=== PATIENT | male | born 1950 | race Caucasian/White ===

== ENCOUNTER 2017-12-29 13:21 | Inpatient (IN) | payer MEDICAID ==
[2017-12-29] MEDS ORDERED: ONDANSETRON HCL IV 4 MG/2 ML VIAL IV ONE (13:38)
[2017-12-29] MEDS ORDERED: 0.9 % SODIUM CHLORIDE 1000ML 1,000 ML IV PRN ×2 (13:38→17:31)
[2017-12-29] MEDS ORDERED: SODIUM CHLORIDE 0.9% 500 ML IV ONE (13:38)
--- NOTE | 2017-12-29 13:38 | Emergency Department Record ---
History of Present Illness - General Chief Complaint: Abdominal Pain Stated Complaint: VOMITING,ABDOMINAL PAIN Time Seen by Provider: 12/29/17 13:31 Source: Patient, Family () Mode of Arrival: Ambulatory - History of Present Illness Initial Comments: Pt with one day of epigastric pain and vomiting. Onset after dinner last night. Hx of similar over the years. Never diagnosed cause. Pt have vomited thru the day and is unable to eat. No diarrhea, no fever. No hx of abdominal surgery or obstruction. No BM yet today but "normally in the afternoon". No CP or SILVANA. + smoker 3 cigars a day, rare social alcohol, not recently. MD Complaint: Abdominal pain Onset/Timin -: Days(s) Location: Periumbilical Severity scale (1-10): 7 Quality: Dull Consistency: Constant Improves With: Nothing Worsens With: Nothing Associated Symptoms: Vomiting - Related Data Home Medications Medication Instructions Recorded Confirmed Last Taken Acetaminophen [Tylenol Extra 1,000 mg PO DAILY 12/29/17 12/29/17 12/29/17 Strength] Previous Rx's Medication Instructions Recorded Amlodipine Besylate [Norvasc] 10 mg PO DAILY #14 tab 01/01/18 Ciprofloxacin HCl [Cipro] 500 mg PO Q12HR #10 tablet 01/01/18 Metronidazole [Flagyl] 500 mg PO Q8HR #15 tablet 01/01/18 Allergies Allergy/AdvReac Type Severity Reaction Status Date / Time No Known Drug Allergies Allergy Verified 12/29/17 13:32 Travel Screening - Travel/Exposure Within Last 30 Days Have you traveled within the last 30 days?: No - Travel/Exposure Within Last Year Have you traveled outside the [place] in the last year?: No - Additonal Travel Details Have you been exposed to anyone with a communicable illness?: No - Travel Symptoms Symptom Screening: None Review of Systems Constitutional: Denies: Chills, Fever, Malaise, Weight change Eyes: Denies: Eye discharge ENT: Denies: Congestion, Epistaxis Respiratory: Denies: Cough, Dyspnea Cardiovascular: Denies: Arrhythmia, Chest pain Endocrine: Denies: Fatigue, Polydipsia, Polyuria Gastrointestinal: Reports: As per HPI, Abdominal pain, Vomiting. Denies: Diarrhea Genitourinary: Denies: Discharge, Dysuria Musculoskeletal: Denies: Arthralgia, Back pain Skin: Denies: Bruising, Change in color Neurological: Denies: Abnormal gait, Headache, Numbness Psychiatric: Denies: Anxiety Hematological/Lymphatic: Denies: Anemia Past Medical History - SOCIAL HISTORY Smoking Status: Current every day smoker Alcohol Use: Occasional Drug Use: Heavy Drug Use Detail:: Marijuana - RESPIRATORY Hx Respiratory Disorders: No - CARDIOVASCULAR Hx Cardio Disorders: Yes Hx Hypertension: Yes Comment:: High cholestrol - NEURO Hx Neuro Disorders: No - GI Hx GI Disorders: No - Hx Genitourinary Disorders: No - ENDOCRINE Hx Endocrine Disorders: No - MUSCULOSKELETAL Hx Musculoskeletal Disorders: No - PSYCH Hx Psych Problems: No - HEMATOLOGY/ONCOLOGY Hx Hematology/Oncology Disorders: No Family Medical History Any Significant Family History?: No Hx Cancer: Mother, Brother/Sister Hx HTN: Mother, Brother/Sister Physical Exam - General General Appearance: Alert, Oriented x3, Cooperative, Mild distress - Head Head exam: Atraumatic - Eye Eye exam: Normal appearance, PERRL, EOMI - ENT ENT exam: Normal exam, Mucous membranes moist, Normal external ear exam, Normal orophraynx, TM's normal bilaterally - Neck Neck exam: Normal inspection, Full ROM. negative: Tenderness - Respiratory Respiratory exam: Normal lung sounds bilaterally. negative: Respiratory distress, Wheezes - Cardiovascular Cardiovascular Exam: Regular rate, Normal rhythm. negative: Tachycardia Peripheral Pulses: 2+: Radial (R), Radial (L) - GI/Abdominal GI/Abdominal exam: Distended, Hypoactive bowel sounds, Tenderness. negative: Guarding, Rebound - Extremities Extremities exam: Normal inspection. negative: Normal capillary refill - Back Back exam: Reports: Normal inspection. Denies: Paraspinal tenderness, Vertebral tenderness - Neurological Neurological exam: Alert, Normal gait, Oriented X3 - Psychiatric Psychiatric exam: Normal affect - Skin Skin exam: Normal color. negative: Rash Course Vital Signs 12/29/17 13:23 Temperature 97.9 F Pulse Rate 125 H Respiratory 20 Rate Blood Pressure 209/107 Pulse Ox 99 - Reevaluation(s) Reevaluation #1: 12/29/17 17:35 CT with mechanical obstruction. Admit to Dr. Forrester and consult surgery with Dr. Sousa. Discussed with both by phone. NPO with IV fluids tonight. No NGT. Xray and lab in AM. Pt and aware and agree. Medical Decision Making - Management Options MDM Management: No Additional Work-up Planned - Data Complexity MDM Data: Labs Ordered and/or Reviewed, X-Ray Ordered and/or Reviewed, EKG Ordered and/or Reviewed - Lab Data Result diagrams: 01/01/18 06:21 01/01/18 06:21 - Radiology Data Radiology results: Report reviewed, Image reviewed Disposition Disposition: Admit Clinical Impression: Small bowel obstruction, Leukocytosis, Vomiting Disposition: Still a Patient at [facility] Decision to Admit: Admit from ER Decision to Admit Date: 12/29/17 Decision to Admit Time: 17:31 Accepting Physician: Mitzy Parsons Discussed w/Accepting Physician: 17:31 Condition: (3) Guarded Time of Disposition: 18:07 Quality - Quality Measures Quality Measures: N/A - Blood Pressure Screening Does Patient Have Any of the Following: Active Dx of HTN Blood Pressure Classification: Hypertensive Reading Systolic Measurement: 163 Diastolic Measurement: 100 Screening for High Blood Pressure: Patient Exclusion, Hx of HTN [[id number]]
[2017-12-29 13:57] LABS: HEMATOCRIT 48.4 % (42.0-52.0); HEMOGLOBIN 16.2 gm/dl (14.0-18.0); MEAN CELL VOLUME 100.6 fl (81-97); MEAN CORPUSCULAR HEMOGLOBIN 33.7 pg (27-33); MEAN CORPUSCULAR HGB CONC 33.5 g/dl (32-36); MEAN PLATELET VOLUME 9.8 fl (7.4-10.4); PLATELET COUNT 385 K/uL (130-400); RED BLOOD COUNT 4.81 M/uL (4.40-5.70); RED CELL DISTRIBUTION WIDTH 13.6 % (11.5-14.5)
[2017-12-29 14:03] LABS: BLOOD UREA NITROGEN 7 mg/dL (8-23); CREATININE 0.8 mg/dL (0.7-1.2); EST GLOMERULAR FILTRATION RATE > 60 mL/min
[2017-12-29 14:04] LABS: TOTAL PROTEIN 8.1 g/dL (6.6-8.7)
[2017-12-29 14:06] LABS: GLUCOSE,RANDOM 141 mg/dL (74-109)
[2017-12-29 14:07] LABS: PLATELET ESTIMATE NORMAL (NORMAL)
[2017-12-29 14:09] LABS: ALBUMIN 4.1 g/dL (4.0-5.0); ALKALINE PHOSPHATASE 143 U/L (40-129); ALT/SGPT 7 U/L (<41); AST/SGOT 14 U/L (10.0-50.0)
[2017-12-29] MEDS ORDERED: HYDROMORPHONE HCL 2 MG/ML VIAL IVP ONE (14:52)
[2017-12-29 16:30] LABS: URINE APPEARANCE CLEAR; URINE BILIRUBIN NEGATIVE (NEGATIVE); URINE BLOOD SMALL (NEGATIVE); URINE COLOR YELLOW; URINE GLUCOSE (UA) NEGATIVE (NEGATIVE); URINE KETONE 40 mg/dL (NEGATIVE); URINE LEUKOCYTE ESTERASE NEGATIVE (NEGATIVE); URINE NITRITE NEGATIVE (NEGATIVE); URINE PROTEIN NEGATIVE (NEGATIVE); URINE UROBILINOGEN 0.2 E.U./dL (0.20 - 1.00)
[2017-12-29 16:44] LABS: URINE EPITHELIAL CELLS NONE SEEN (FEW); URINE WBC NONE SEEN (0-2/hpf)
[2017-12-29] MEDS ORDERED: POTASSIUM CHLORIDE/D5-0.9%NACL 20 MEQ/1,000 ML BAG IV ONE (17:31)
[2017-12-29] MEDS: POTASSIUM CHLORIDE/D5-0.45NACL 20 MEQ/1,000 ML BAG IV SCH (18:44)
[2017-12-29] MEDS ORDERED: PNEUM 13-VAL/PF 0.5 ML IM ONE (18:53)
[2017-12-29] MEDS: ONDANSETRON HCL IV 4 MG/2 ML VIAL IVP PRN (23:13)
[2017-12-29] MEDS: MORPHINE SULFATE 10 MG/ML VIAL IVP PRN (23:13)
[2017-12-30] MEDS: POTASSIUM CHLORIDE/D5-0.45NACL 20 MEQ/1,000 ML BAG IV SCH (03:15)
[2017-12-30] MEDS: MORPHINE SULFATE 10 MG/ML VIAL IVP PRN ×3 (04:33→19:38)
[2017-12-30 06:53] LABS: BASO % 0.1 % (0-6); HEMATOCRIT 47.9 % (42.0-52.0); LYMPH % 6.4 % (16-45); MEAN CELL VOLUME 100.6 fl (81-97); MEAN CORPUSCULAR HEMOGLOBIN 33.6 pg (27-33); MEAN CORPUSCULAR HGB CONC 33.4 g/dl (32-36); MEAN PLATELET VOLUME 9.9 fl (7.4-10.4); MONO % 7.6 % (0-9); PLATELET COUNT 368 K/uL (130-400); RED BLOOD COUNT 4.76 M/uL (4.40-5.70); RED CELL DISTRIBUTION WIDTH 13.7 % (11.5-14.5)
[2017-12-30 07:03] LABS: BLOOD UREA NITROGEN 5 mg/dL (8-23); CREATININE 0.8 mg/dL (0.7-1.2); EST GLOMERULAR FILTRATION RATE > 60 mL/min; GLUCOSE,RANDOM 149 mg/dL (74-109)
[2017-12-30 07:05] LABS: WHITE BLOOD COUNT W/O DIFF 26.9 K/uL (4.2-12.2)
--- NOTE | 2017-12-30 08:05 | RADIOLOGY REPORT ---
EXAM: ACUTE ABDOMEN SERIES HISTORY: ABDOMINAL PAIN. TECHNIQUE: A single view of the chest and supine and upright views of the abdomen were performed. FINDINGS: The heart size is normal. The lung ruiz are clear. No infiltrate or pleural effusion. No pneumothorax. Nonobstructive air filled loops of small bowel. No evidence of free air. No radiopaque densities. Osteopenia. IMPRESSION: 1. NONOBSTRUCTIVE BOWEL GAS PATTERN. NO EVIDENCE OF FREE AIR. 2. NO ACUTE INTRATHORACIC DISEASE PROCESS. [facility] [id number] [facility]
--- NOTE | 2017-12-30 08:14 | CT SCAN REPORT ---
EXAM: CT OF THE ABDOMEN AND PELVIS WITH IV CONTRAST HISTORY: ABDOMINAL PAIN, DISTENTION, VOMITING FOR ONE DAY. TECHNIQUE: Helical CT scan of the abdomen and pelvis was obtained after the administration of intravenous contrast, the type and amount of contrast is specified in the patient's medical record. The patient also received oral contrast. Comparison: CT of the abdomen and pelvis 03/18/14. FINDINGS: The right lower lobe pulmonary nodule is calcified. No noncalcified pulmonary nodules. Minimal right basilar atelectasis. No pleural or pericardial effusion. The stomach is moderate distended, similar to previous exam. There is mild thickening of the second portion of the duodenum. The jejunum is mildly distended. The ileum is not dilated. There is slight angulation of the distal jejunum/proximal ileum with decompressed bowel following, see image 109. The colon is mildly distended with gas. The liver is unremarkable. The spleen is small. The pancreas and adrenal glands are within normal limits. Cortical cysts are again seen in both kidneys , similar to previous exam. No hydronephrosis. No adenopathy or ascites. Moderate atherosclerotic change of the nonaneurysmal abdominal aorta. The mesenteric arteries are widely patent. The mesenteric veins are patent. The gallbladder is mildly distended, no abnormal wall thickening. The bile ducts have normal caliber. The bony structures show moderate degenerative changes of the lower lumbar spine. IMPRESSION: MODERATELY DISTENDED STOMACH AND PROXIMAL SMALL BOWEL. THERE MAY BE SLIGHT THICKENING OF THE SECOND PORTION OF THE DUODENUM. THERE IS ALSO A SLIGHT TRANSITION IN THE DISTAL JEJUNUM/PROXIMAL ILEUM, WHICH MAY REPRESENT A LOW GRADE PARTIAL MECHANICAL BOWEL OBSTRUCTION. JOB NUMBER: [id number] [facility]
--- NOTE | 2017-12-30 08:33 | History & Physical ---
History of Present Illness - Date of Service Date of Service for History & Physical: 12/30/17 - History of Present Illness Admitting Diagnosis: bowel obstruction History of Present Illness: Mr. 67 y/o male with complaint of abdominal pain which began yesterday morning while at home. He describes acute onset pain in the mid abdomen with a severity of about 10/10. He says that he also had some nausea sand vomiting episodes with his symptoms but denies constipation or diarrhea. The patient says that his last bowel movement was 1 day ago and he did not notice any change in stool calibre and there was no blood. He reports having a colonoscopy several years ago in [place] with no positive findings. The patient denies weight loss, appetite changes, fever or chills. He admits to alcohol use every few days and says his last drink was 3 days ago. On admission to [facility] ED the patient was noted to have significant elevation in white blood count and CT of the abdomen was suggestive of partial mechanical obstruction in the distal jejunum/ileum. The patient is admitted for bowel rest , pain management and Genral surgery consult for evaluation. Vitals on admission: BP: 209/107 HR: 125 RR: 20 T: 97.9 Sats: 99% RA Abdominal XR: nonobstructive bowel gas pattern, no free air. CT abdomen w/ contrast: partial SBO in the jejunem/iluem with partial thickening of the duodenum. PCP: No PCP at this time. Travel Screening - Travel/Exposure Within Last 30 Days Have you traveled within the last 30 days?: No - Travel/Exposure Within Last Year Have you traveled outside the [place] in the last year?: No - Additonal Travel Details Have you been exposed to anyone with a communicable illness?: No - Travel Symptoms Symptom Screening: Stomach Pain Review of Systems Constitutional: Denies: Chills, Fever, Malaise, Weight change Eyes: Denies: Eye discharge ENT: Denies: Congestion, Epistaxis Respiratory: Denies: Cough, Dyspnea Cardiovascular: Denies: Arrhythmia, Chest pain Endocrine: Denies: Fatigue, Polydipsia, Polyuria Gastrointestinal: Reports: As per HPI, Abdominal pain, Vomiting. Denies: Diarrhea Genitourinary: Denies: Discharge, Dysuria Musculoskeletal: Denies: Arthralgia, Back pain Skin: Denies: Bruising, Change in color Neurological: Denies: Abnormal gait, Headache, Numbness Psychiatric: Denies: Anxiety Hematological/Lymphatic: Denies: Anemia Past Medical History - SOCIAL HISTORY Smoking Status: Current every day smoker Alcohol Use: Occasional Drug Use Detail:: Marijuana - RESPIRATORY Hx Respiratory Disorders: No - CARDIOVASCULAR Hx Cardio Disorders: Yes Hx Hypertension: Yes (pt. states currently not taking any medications) Comment:: High cholestrol - NEURO Hx Neuro Disorders: No - GI Hx GI Disorders: No - Hx Genitourinary Disorders: No - ENDOCRINE Hx Endocrine Disorders: No - MUSCULOSKELETAL Hx Musculoskeletal Disorders: No - PSYCH Hx Psych Problems: No - HEMATOLOGY/ONCOLOGY Hx Hematology/Oncology Disorders: No Family Medical History Any Significant Family History?: Yes Hx Cancer: Mother, Brother/Sister Hx HTN: Mother, Brother/Sister H&P Meds/Allergies - Allergies Allergies: Allergies Allergy/AdvReac Type Severity Reaction Status Date / Time No Known Drug Allergies Allergy Verified 12/29/17 13:32 - Home Medications Home Medications Medication Instructions Recorded Confirmed Last Taken Acetaminophen [Tylenol Extra 1,000 mg PO DAILY 12/29/17 12/29/17 12/29/17 Strength] - Active Medications Active Medications: Current Medications Sodium Chloride () 1,000 mls @ 125 mls/hr IV .Q8H PRN PRN Reason: LARGE VOLUME IV Sodium Chloride () 1,000 mls @ 125 mls/hr IV .Q8H PRN PRN Reason: LARGE VOLUME IV Potassium Chloride/Dextrose/Sod Cl (Dext 5% Nacl 0.45% Kcl 20 Meq) 20 meq in 1, 000 mls @ 125 mls/hr IV Q8H LILIA Last Admin: 12/30/17 03:15 Dose: 125 mls/hr Morphine Sulfate (Morphine Sulfate) 2 mg IVP Q6HR PRN PRN Reason: ABDOMINAL PAIN Last Admin: 12/30/17 04:33 Dose: 2 mg Ondansetron HCl (Zofran) 4 mg IVP Q4H PRN PRN Reason: NAUSEA Last Admin: 12/29/17 23:13 Dose: 4 mg Physical Exam - Vital Signs Vital Signs: Vital Signs - Last 24 Hrs Temp Pulse Pulse Resp BP BP Pulse Ox 12/29/17 21:00 16 12/29/17 20:00 97.5 F L 79 20 177/92 95 12/29/17 19:00 98.1 F 18 163/100 96 12/29/17 18:32 98.1 F 81 18 137/104 97 12/29/17 18:26 76 18 163/100 96 12/29/17 16:57 98.6 F 80 20 186/98 97 12/29/17 15:03 98.0 F 78 20 210/100 98 12/29/17 13:23 97.9 F 125 H 20 209/107 99 - General General Appearance: Alert, Oriented x3, Cooperative, Mild distress - Head Head exam: Atraumatic - Eye Eye exam: Normal appearance, PERRL, EOMI - ENT ENT exam: Normal exam, Mucous membranes moist, Normal external ear exam, Normal orophraynx, TM's normal bilaterally - Neck Neck exam: Normal inspection, Full ROM. negative: Tenderness - Respiratory Respiratory exam: Normal lung sounds bilaterally. negative: Respiratory distress, Wheezes - Cardiovascular Cardiovascular Exam: Regular rate, Normal rhythm. negative: Tachycardia Peripheral Pulses: 2+: Radial (R), Radial (L), Dorsalis Pedis (R), Dorsalis Pedis (L) - GI/Abdominal GI/Abdominal exam: Diminished bowel sounds, Distended, Hypoactive bowel sounds, Tenderness. negative: Guarding, Rebound - Extremities Extremities exam: Normal inspection. negative: Normal capillary refill - Back Back exam: Reports: Normal inspection. Denies: Paraspinal tenderness, Vertebral tenderness - Neurological Neurological exam: Alert, Normal gait, Oriented X3 - Psychiatric Psychiatric exam: Normal affect - Skin Skin exam: Normal color. negative: Rash Results - Labs Result Diagrams: 12/30/17 06:13 12/30/17 06:13 Labs Last 24 Hours: Laboratory Results - last 24 hr 12/29/17 12/29/17 12/29/17 13:45 13:45 16:20 WBC 22.0 H* RBC 4.81 Hgb 16.2 Hct 48.4 MCV 100.6 H MCH 33.7 H MCHC 33.5 RDW 13.6 Plt Count 385 MPV 9.8 Neutrophils % 85.0 H Lymphocytes % Monocytes % Eosinophils % Not Reportable Basophils % Not Reportable Lymphocytes 10.0 L Monocytes 5.0 Platelet Estimate Normal RBC Morphology Normal Sodium 138 Potassium 4.2 Chloride 96 L Carbon Dioxide 24.0 Anion Gap 18.0 H BUN 7 L Creatinine 0.8 Estimated GFR > 60 Random Glucose 141 H Calcium 10.0 Total Bilirubin 0.50 AST 14 ALT 7 Alkaline Phosphatase 143 H Total Protein 8.1 Albumin 4.1 Globulin 4.0 Albumin/Globulin Ratio 1.0 L Urine Color Yellow Urine Appearance Clear Urine pH 5.5 Ur Specific [place] >= 1.030 Urine Protein Negative Urine Glucose (UA) Negative Urine Ketones 40 mg/dl H Urine Blood Small H Urine Nitrite Negative Urine Bilirubin Negative Urine Urobilinogen 0.2 Ur Leukocyte Esterase Negative Urine RBC 3 - 6 Urine WBC None seen Ur Epithelial Cells None seen 12/30/17 12/30/17 06:13 06:13 WBC 26.9 H* RBC 4.76 Hgb 16.0 Hct 47.9 MCV 100.6 H MCH 33.6 H MCHC 33.4 RDW 13.7 Plt Count 368 MPV 9.9 Neutrophils % 84.0 H Lymphocytes % 6.4 L Monocytes % 7.6 Eosinophils % 0.0 Basophils % 0.1 Lymphocytes 10.0 L Monocytes 6.0 Platelet Estimate RBC Morphology Sodium 133 L Potassium 3.8 Chloride 92 L Carbon Dioxide 27.0 Anion Gap 14.0 BUN 5 L Creatinine 0.8 Estimated GFR > 60 Random Glucose 149 H Calcium 9.1 Total Bilirubin AST ALT Alkaline Phosphatase Total Protein Albumin Globulin Albumin/Globulin Ratio Urine Color Urine Appearance Urine pH Ur Specific [place] Urine Protein Urine Glucose (UA) Urine Ketones Urine Blood Urine Nitrite Urine Bilirubin Urine Urobilinogen Ur Leukocyte Esterase Urine RBC Urine WBC Ur Epithelial Cells VTE H&P Assessment - Risk for VTE Risk for VTE: Yes Risk Level: Moderate Risk Assessment Date: 12/30/17 Risk Assessment Time: 09:44 VTE Orders Placed or Will Be Placed: Yes Plan - Inpatient Certification Inpatient Certification: Admit to inpatient care: Based on my medical assessment, after consideration of patient's risk factors (age, co-morbidities and patient presenting symptoms and acuity), I expect that this patient will remain in the hospital greater than or equal to two midnights and that the services needed warrant inpatient care because: Patient Risk Factors: SBO/HTN Estimated length of stay: 3 days. The patient may reasonably be expected to be discharged or transferred to a hospital within 96 hours after admission to [facility]. Services needed: General Surgery Post hospital care (if known): I certify that my determination is in accordance with my understanding of Medicare requirements for reasonable and necessary inpatient services. 12/30/17 08:45 - Detailed Diagnosis and Plan (1) Small bowel obstruction Current Visit: Yes Status: Acute Base Code: K56.609 - UNSP INTESTNL OBST, UNSP TO PARTIAL VERSUS COMPLETE OBST Comment: - CT reports: low grade mechanical obstruction near the distal jejunum and ileum with inflammation of the duodedum. - NPO, IVF Nacl 0.9% @ 100mL/hr - Zofran 4mg IVP Q4H PRN, Morphine 2 mg IVP Q4H PRN. - General surgery consulted - pending recommendations. - Serial CBC w/ diff, CMP in the morning. Lipase and lactate ordered. - Advance diet starting with clear liquids once if no surgical intervention planned. (2) HTN (hypertension) Current Visit: Yes Status: Acute Qualifiers: Hypertension type: essential hypertension Qualified Code(s): I10 - Essential (primary) hypertension Base Code: I10 - ESSENTIAL (PRIMARY) HYPERTENSION Comment: 12/30/17: - BP poorly controlled. Patient has been non-complaint with blood pressure medications. - Hydralazine 10mg Q8H LILIA, with parameters: holding for SBP < 120. - Transtion to PO medications once patient can tolerate diet. (3) Leukocytosis Current Visit: Yes Status: Acute Base Code: D72.829 - ELEVATED WHITE BLOOD CELL COUNT, UNSPECIFIED Comment: 12/30/17: - WBCs 22K --> 26.9 - pt afebrile, likely reactive vs infection. - will trend and start abx if needed. (4) Full code status Current Visit: Yes Status: Acute Base Code: Z78.9 - OTHER SPECIFIED HEALTH STATUS Comment: 12/30/17: - Patient is full code on this admission. (5) DVT prophylaxis Current Visit: Yes Status: Acute Base Code: [id number] - Comment: 12/30/17: - Lovenox 40mg daily - Ambulation as tolerated
[2017-12-30] MEDS ORDERED: 0.9 % SODIUM CHLORIDE 1000ML 1,000 ML IV PRN ×2 (09:29)
[2017-12-30] MEDS ORDERED: HYDRALAZINE 20MG/ML VIAL IV ONE (10:00)
[2017-12-30] MEDS: ONDANSETRON HCL IV 4 MG/2 ML VIAL IVP PRN (10:30)
--- NOTE | 2017-12-30 12:22 | RADIOLOGY REPORT ---
EXAM: ABDOMEN, TWO VIEWS HISTORY: EPIGASTRIC ABDOMINAL PAIN FOR ONE DAY. TECHNIQUE: Supine and upright AP views of the abdomen were obtained. Comparison: CT of the abdomen and pelvis and abdominal radiographs from . FINDINGS: Multiple dilated air filled small bowel loops throughout the abdomen , not appreciably changed from 12/29/17 radiographic comparison. Contrast within small bowel loops in the left tootie-abdomen and upper pelvis without evidence of contrast in the colon. Scattered gas and stool within the colon most prominently seen within the cecum and ascending colon, similar to prior examination. No visible pneumoperitoneum. IMPRESSION: MULTIPLE DILATED SMALL BOWEL LOOPS WHICH DO NOT APPEAR SIGNIFICANTLY CHANGED FROM COMPARISON ON THE 12/29/17. ORAL CONTRAST MATERIAL WITHIN MID/DISTAL SMALL BOWEL LOOPS HAS NOT DEFINITELY PROGRESSED FROM PRIOR CT. NO EVIDENCE OF CONTRAST IN THE COLON. JOB NUMBER: [id number] [facility]
[2017-12-30] MEDS ORDERED: 0.9 % SODIUM CHLORIDE 1,000 ML BAG IV ONE (16:29)
--- NOTE | 2017-12-30 17:31 | Medical Records Consult ---
DATE: 12/30/2017 REASON FOR CONSULTATION: Small bowel obstruction. HISTORY OF PRESENT ILLNESS: The patient is a 67-year-old male who had about a 2-day history of abdominal pain. This was generalized in his abdomen and diffuse. He vomited a few times and came into the hospital. He was seen at [facility] ER where workup was done. This did include laboratory values and a CT scan. CT scan did show findings consistent with possibly potential thickened second portion of the duodenum with some mild dilated jejunum with decompressed ileum. He did have a mild leukocytosis at the time of 22,000. He was admitted to the hospital and given IV fluids and pain control. Since then, he states he feels much better. He is passing gas but no bowel movements. His white count today did jump up to 26,000. PAST MEDICAL HISTORY: Alcohol abuse, hypercholesterolemia, hypertension. PAST SURGICAL HISTORY: Denies. CURRENT MEDICATIONS: Antihypertensives but he admits he does not use this very often. SOCIAL HISTORY: He says he drinks about 2 beers a day although had a significant alcohol history in the past. Smokes 3 cigars per day. PHYSICAL EXAMINATION: VITAL SIGNS: Temperature 98.3, pulse 98, blood pressure 157/93. HEART: Regular. LUNGS: Decreased. ABDOMEN: Soft. Mildly distended. Did have some mild right upper quadrant tenderness. Bowel sounds are scant. Examination of the inguinal region reveals no obvious hernia. EXTREMITIES: No trace of edema. RADIOGRAPHIC DATA: I did review his abdominal films this morning which do show some dilated small bowel with no passage of contrast into the colon. IMPRESSION: Bowel obstruction versus ileus. PLAN: I would recommend continue to follow him clinically. We will trend his labs. I did add a lactic acid onto the laboratory panel. On CT, his gallbladder did appear a bit distended. However, this should not give us his clinical picture. Nonetheless, gallbladder ultrasound can be ordered. He also may benefit from upper endoscopy due to his alcohol history as well as thickened duodenum on imaging. I will follow along with you. Thank you for this referral. MEGHANN
[2017-12-30] MEDS: MAGNESIUM HYDROXIDE 30 ML UDC PO SCH ×2 (19:38→20:58)
[2017-12-31] MEDS: MAGNESIUM HYDROXIDE 30 ML UDC PO SCH ×4 (00:19→18:50)
[2017-12-31 06:52] LABS: EOS % 0.3 % (0-6); HEMATOCRIT 43.4 % (42.0-52.0); HEMOGLOBIN 14.8 gm/dl (14.0-18.0); LYMPH % 5.7 % (16-45); MEAN CELL VOLUME 99.3 fl (81-97); MEAN CORPUSCULAR HGB CONC 34.1 g/dl (32-36); MEAN PLATELET VOLUME 9.9 fl (7.4-10.4); MONO % 4.8 % (0-9); PLATELET COUNT 276 K/uL (130-400); RED BLOOD COUNT 4.37 M/uL (4.40-5.70); RED CELL DISTRIBUTION WIDTH 13.6 % (11.5-14.5)
[2017-12-31 06:53] LABS: MEAN CORPUSCULAR HEMOGLOBIN 33.8 pg (27-33)
[2017-12-31 06:56] LABS: WHITE BLOOD COUNT W/O DIFF 23.4 K/uL (4.2-12.2)
[2017-12-31 07:05] LABS: BLOOD UREA NITROGEN 8 mg/dL (8-23); CREATININE 0.7 mg/dL (0.7-1.2); EST GLOMERULAR FILTRATION RATE > 60 mL/min; GLUCOSE,RANDOM 102 mg/dL (74-109)
--- NOTE | 2017-12-31 07:24 | ULTRASOUND REPORT ---
EXAM: ULTRASOUND OF THE ABDOMEN HISTORY: ABDOMINAL PAIN. TECHNIQUE: Sonographic evaluation of the abdomen was performed using cristobal scale imaging. FINDINGS: The liver has a coarsened echotexture suggestive of hepatocellular disease. There is cholelithiasis. The common bile duct measures 6 mm. The pancreas and spleen appear normal. The kidneys are normal in size with no hydronephrosis or nephrolithiasis. There are benign appearing cysts in the right kidney. These measure 2.5 cm in maximal dimension. The abdominal aorta and inferior vena cava are patent. IMPRESSION: 1. CHOLELITHIASIS WITHOUT DUCTAL DILATATION. THE PATIENT DEMONSTRATED POSITIVE IBARRA'S SIGN DURING SCANNING. FINDINGS ARE SUGGESTIVE OF ACUTE CHOLECYSTITIS. 2. FINDINGS ARE SUGGESTIVE OF HEPATOCELLULAR DISEASE. [facility] [id number] [facility]
[2017-12-31] MEDS ORDERED: CEFTRIAXONE SODIUM 2 GM in 0.9 % SODIUM CHLORIDE 100ML 100 ML IVPB SCH (13:00)
[2017-12-31] MEDS: METRONIDAZOLE IVPB 500 MG/100 ML BAG IVPB SCH ×2 (14:24→22:56)
[2017-12-31] MEDS: 0.9 % SODIUM CHLORIDE 1000ML 1,000 ML IV PRN ×2 (16:52→22:58)
[2018-01-01] MEDS: MAGNESIUM HYDROXIDE 30 ML UDC PO SCH ×2 (01:18→06:03)
[2018-01-01] MEDS: METRONIDAZOLE IVPB 500 MG/100 ML BAG IVPB SCH (05:56)
[2018-01-01] MEDS: 0.9 % SODIUM CHLORIDE 1000ML 1,000 ML IV PRN (05:57)
[2018-01-01 06:37] LABS: BASO % 0.1 % (0-6); EOS % 0.3 % (0-6); HEMATOCRIT 39.5 % (42.0-52.0); HEMOGLOBIN 13.3 gm/dl (14.0-18.0); LYMPH % 7.2 % (16-45); MEAN CELL VOLUME 100.3 fl (81-97); MEAN CORPUSCULAR HGB CONC 33.7 g/dl (32-36); MONO % 5.1 % (0-9); PLATELET COUNT 266 K/uL (130-400); RED BLOOD COUNT 3.94 M/uL (4.40-5.70); RED CELL DISTRIBUTION WIDTH 13.6 % (11.5-14.5); WHITE BLOOD COUNT W/O DIFF 18.7 K/uL (4.2-12.2)
[2018-01-01 06:40] LABS: MEAN CORPUSCULAR HEMOGLOBIN 33.7 pg (27-33)
[2018-01-01 06:52] LABS: BLOOD UREA NITROGEN 8 mg/dL (8-23); CREATININE 0.7 mg/dL (0.7-1.2); EST GLOMERULAR FILTRATION RATE > 60 mL/min; GLUCOSE,RANDOM 87 mg/dL (74-109)
[2018-01-01 07:07] LABS: PLATELET ESTIMATE NORMAL (NORMAL)
--- NOTE | 2018-01-01 09:40 | Discharge Summary ---
Providers Discharge Summary Date: 01/01/18 Date of admission: 12/29/17 18:28 Attending physician: MARK JACKSON Primary care physician: Heather Saenz N.P. Consults: Consult Orders 12/29/17 17:42 Consult NOW Consulting Provider: Adeel Sousa Physician Instructions: Dr. Sousa aware Reason For Exam: bowel obst Physical Exam - Vital Signs Vital Signs: Vital Signs - Last 24 Hrs Temp Pulse Resp BP Pulse Ox 01/01/18 06:25 98.9 F 102 H 18 138/86 96 12/31/17 23:00 98.1 F 113 H 17 144/98 97 12/31/17 15:00 98.6 F 85 18 149/85 99 - General General Appearance: Alert, Oriented x3, Cooperative, Mild distress - Head Head exam: Atraumatic - Eye Eye exam: Normal appearance, PERRL, EOMI - ENT ENT exam: Normal exam, Mucous membranes moist, Normal external ear exam, Normal orophraynx, TM's normal bilaterally - Neck Neck exam: Normal inspection, Full ROM. negative: Tenderness - Respiratory Respiratory exam: Normal lung sounds bilaterally. negative: Respiratory distress, Wheezes - Cardiovascular Cardiovascular Exam: Regular rate, Normal rhythm. negative: Tachycardia Peripheral Pulses: 2+: Radial (R), Radial (L), Dorsalis Pedis (R), Dorsalis Pedis (L) - GI/Abdominal GI/Abdominal exam: Diminished bowel sounds, Distended, Hypoactive bowel sounds, Tenderness. negative: Guarding, Rebound - Extremities Extremities exam: Normal inspection. negative: Normal capillary refill - Back Back exam: Reports: Normal inspection. Denies: Paraspinal tenderness, Vertebral tenderness - Neurological Neurological exam: Alert, Normal gait, Oriented X3 - Psychiatric Psychiatric exam: Normal affect - Skin Skin exam: Normal color. negative: Rash Hospitalization - Hospitalization Admission Diagnosis: bowel obstruction - Problem List/Discharge Diagnosis (1) Small bowel obstruction Current Visit: Yes Status: Acute Base Code: K56.609 - UNSP INTESTNL OBST, UNSP TO PARTIAL VERSUS COMPLETE OBST Comment: 01/01/18: - CT reports: low grade mechanical obstruction near the distal jejunum and ileum with inflammation of the duodedum. - NPO, IVF Nacl 0.9% @ 100mL/hr d/c - Zofran 4mg IVP Q4H PRN, Morphine 2 mg IVP Q4H PRN. - General surgery consulted - pending recommendations. - Serial CBC w/ diff, shows trending down of WBCs after initiating abx: Rocephin /Flagyl. - Diet advanced and patient tolerated, clears and now full diet this morning. (2) HTN (hypertension) Current Visit: Yes Status: Acute Discharge Diagnosis: Hypertension type: essential hypertension Qualified Code(s): I10 - Essential (primary) hypertension Base Code: I10 - ESSENTIAL (PRIMARY) HYPERTENSION Comment: 01/01/18: - BP poorly controlled. Patient has been non-complaint with blood pressure medications. - Hydralazine 10mg Q8H LILIA, with parameters: holding for SBP < 120. Pt's pain also likely cause of poor control. - Transtion to PO medications once patient can tolerate diet. - Check BP in office next week and start BP medication. (3) Leukocytosis Current Visit: Yes Status: Acute Base Code: D72.829 - ELEVATED WHITE BLOOD CELL COUNT, UNSPECIFIED Comment: 01/01/18: - WBCs 22K --> 26.9 --> 18K - pt afebrile, likely reactive vs infection. - On Rocephin 2gm Q24H and Flagyl 500mg IV Q8H - Change to PO medications: Cipro 500mg BID and Flagyl 500mg Q8H daily for the next 5 days. (4) Full code status Current Visit: Yes Status: Acute Base Code: Z78.9 - OTHER SPECIFIED HEALTH STATUS Comment: 01/01/18: - Patient is full code on this admission. (5) DVT prophylaxis Current Visit: Yes Status: Acute Base Code: [id number] - Comment: 01/01/18: - Lovenox 40mg daily - Ambulation as tolerated - Hospitalization Course Hospital Course: Mr. 67 y/o male with complaint of abdominal pain which began yesterday morning while at home. He describes acute onset pain in the mid abdomen with a severity of about 10/10. He says that he also had some nausea sand vomiting episodes with his symptoms but denies constipation or diarrhea. The patient says that his last bowel movement was 1 day ago and he did not notice any change in stool calibre and there was no blood. He reports having a colonoscopy several years ago in [place] with no positive findings. The patient denies weight loss, appetite changes, fever or chills. He admits to alcohol use every few days and says his last drink was 3 days ago. On admission to [facility] ED the patient was noted to have significant elevation in white blood count and CT of the abdomen was suggestive of partial mechanical obstruction in the distal jejunum/ileum. The patient is admitted for bowel rest , pain management and Genral surgery consult for evaluation. Vitals on admission: BP: 209/107 HR: 125 RR: 20 T: 97.9 Sats: 99% RA Abdominal XR: nonobstructive bowel gas pattern, no free air. CT abdomen w/ contrast: partial SBO in the jejunem/iluem with partial thickening of the duodenum. Abdominal US complete: cholelethiasis w/o ductal dilation, + boles's sign. PCP: No PCP at this time. 12/31-01/01: The patient improved clinically over the initial 24 hour period and was no longer in pain. Abdominal Us described cholethiasis w/o ductal obstruction. General surgery recommended continued bowel rest and IVF. However , his white count remained elevated >20K, but he was afebrile and showed no other indication of active infection over the subsequent 24 hour period. The patient was started on IV Flagyl 500mg Q8H and Rocephin 2gm Q24H and WBCs trended down to 18K. On examination this morning the patient is awake, alert and in no pain. He is able to tolerate his diet and is moving his bowels without appropriately. Procedures: Imaging and X-Rays 12/29/17 13:38 ABDOMEN, ACUTE SERIES [RAD] Stat 12/29/17 14:36 ABDOMEN/PELVIS W CONTRAST [CT] Stat 12/30/17 08:00 ABDOMEN 2 VIEW [RAD] Stat 12/30/17 14:20 ABDOMEN, COMPLETE [US] Stat Abnormal Labs: Abnormal Lab Results 12/29/17 12/29/17 12/29/17 Range/Units 13:45 13:45 16:20 WBC 22.0 H* (4.2-12.2) K/uL RBC (4.40-5.70) M/uL Hgb (14.0-18.0) gm/dl Hct (42.0-52.0) % MCV 100.6 H (81-97) fl MCH 33.7 H (27-33) pg Neutrophils % 85.0 H (47-80) % Lymphocytes % (16-45) % Lymphocytes 10.0 L (16-45) % Sodium (136-145) mmol/L Potassium (3.4-4.5) mmol/L Chloride 96 L (98-107) mmol/L Carbon Dioxide (22-29) mmol/L Anion Gap 18.0 H (7-16) BUN 7 L (8-23) mg/dL Random Glucose 141 H (74-109) mg/dL Lactic Acid (0.5-2.2) mmol/L Calcium (8.8-10.2) mg/dL Alkaline Phosphatase 143 H (40-129) U/L Albumin/Globulin Ratio 1.0 L (1.1-1.8) Urine Ketones 40 mg/dl H (NEGATIVE) Urine Blood Small H (NEGATIVE) 12/30/17 12/30/17 12/30/17 Range/Units 06:13 06:13 14:15 WBC 26.9 H* (4.2-12.2) K/uL RBC (4.40-5.70) M/uL Hgb (14.0-18.0) gm/dl Hct (42.0-52.0) % MCV 100.6 H (81-97) fl MCH 33.6 H (27-33) pg Neutrophils % 84.0 H (47-80) % Lymphocytes % 6.4 L (16-45) % Lymphocytes 10.0 L (16-45) % Sodium 133 L (136-145) mmol/L Potassium (3.4-4.5) mmol/L Chloride 92 L (98-107) mmol/L Carbon Dioxide (22-29) mmol/L Anion Gap (7-16) BUN 5 L (8-23) mg/dL Random Glucose 149 H (74-109) mg/dL Lactic Acid 2.3 H (0.5-2.2) mmol/L Calcium (8.8-10.2) mg/dL Alkaline Phosphatase (40-129) U/L Albumin/Globulin Ratio (1.1-1.8) Urine Ketones (NEGATIVE) Urine Blood (NEGATIVE) 12/31/17 01/01/18 01/01/18 Range/Units 06:33 06:21 06:21 WBC 23.4 H* 18.7 H (4.2-12.2) K/uL RBC 4.37 L 3.94 L (4.40-5.70) M/uL Hgb 13.3 L (14.0-18.0) gm/dl Hct 39.5 L (42.0-52.0) % MCV 99.3 H 100.3 H (81-97) fl MCH 33.8 H 33.7 H (27-33) pg Neutrophils % 90.0 H 94.0 H (47-80) % Lymphocytes % 5.7 L 7.2 L (16-45) % Lymphocytes 5.0 L 5.0 L (16-45) % Sodium 133 L (136-145) mmol/L Potassium 3.3 L (3.4-4.5) mmol/L Chloride 97 L (98-107) mmol/L Carbon Dioxide 21.0 L (22-29) mmol/L Anion Gap (7-16) BUN (8-23) mg/dL Random Glucose (74-109) mg/dL Lactic Acid (0.5-2.2) mmol/L Calcium 8.3 L (8.8-10.2) mg/dL Alkaline Phosphatase (40-129) U/L Albumin/Globulin Ratio (1.1-1.8) Urine Ketones (NEGATIVE) Urine Blood (NEGATIVE) Condition at Discharge: (3) Guarded Discharge Medications - Discharge Medications Prescriptions: Metronidazole [Flagyl] 500 mg PO Q8HR #15 tablet Ciprofloxacin HCl [Cipro] 500 mg PO Q12HR #10 tablet Home Medications: Ambulatory Orders Acetaminophen [Tylenol Extra Strength] 1,000 mg PO DAILY 12/29/17 [Last Taken ] Amlodipine Besylate [Norvasc] 10 mg PO DAILY #14 tab 01/01/18 [Last Taken Unknown] Ciprofloxacin HCl [Cipro] 500 mg PO Q12HR #10 tablet 01/01/18 [Last Taken Unknown] Metronidazole [Flagyl] 500 mg PO Q8HR #15 tablet 01/01/18 [Last Taken Unknown] Discharge Plan - Discharge Instructions Activity at Discharge: Resume Usual Activities As Tolerated Diet at Discharge: Low Fat, Low Cholesterol, Low Salt Diet Additional Instructions: Appointment to follow up from hospital stay and to start primary care at [facility]. [facility] [address], [place] [address]. If you need to reschedule, call [phone]. -January 07 at 10:20 AM with ABBI Raphael. Medications to take: Flagyl 500mg, take 1 tab every (8) hours for the next 5 days. Cipro 500mg, take 1 tab every (12) hours for the next 5 days. Amlodipine 10mg daily for your blood pressure. If you have any return of symptoms or questions bout your medications please feel free to call the office for further instructions. Quality Measures - Quality Measures Quality Measures: Advance Directives, Documentation of Current Medications in Medical Record, Elder Maltreatment Screen and Follow-Up Plan, Screening for High Blood Pressure and F/U Documented - Current Medications Quality Measure: Measure #130: Documentation of Current Medications Documentation of Current Medications: <Current Medications Documented/Reviewed> [G8427] - Blood Pressure Screening Quality Measure: Screening for High Blood Pressure and Follow-Up Documented Does Patient Have Any of the Following: Active Dx of HTN Blood Pressure Classification: Hypertensive Reading Systolic Measurement: 163 Diastolic Measurement: 100 Screening for High Blood Pressure: Patient Exclusion, Hx of HTN [G9744] - Advance Directives Quality Measure: Measure #47: Care Plan Advance Directives Established: No Advance Directives Information Provided To Patient: Declined Advance Directives on File: No Living Will: No Power of Inside Sales Supervisor: No Advance Care Planning: <Care Plan/Decision Maker Documented; Discussed & Documented> [1125A] - Elder Abuse Suspicion Index Screening: Elder Abuse Suspicion Index Screening Rely on people for bathing, dressing, shopping, banking, etc: No Prevented from getting food, clothes, medication, etc: No Made to feel shamed or threatened by someone: No Forced to sign papers or use money against will: No Feel afraid, touched in ways not wanted or hurt physically: No Poor eye contact, withdrawn, malnourished, cuts or bruises: No Screening Result: Negative result EASI Reference Information: Martin SAENZ, Little Galindo, Shant Valero, Paola Murillo.Development and validation of a tool to assist physicians identification of elder abuse: The Elder Abuse Suspicion Index (EASI ). Journal of Elder Abuse and Neglect, 2008; 20 (3): 276-300. - Elder Maltreatment Screen Quality Measures: Elder Maltreatment Screen and Follow-Up Plan Elder Maltreatment Screen: <Negative, No Follow-Up Plan Required> [C1237]
--- NOTE | 2018-01-01 10:50 | Medical Records Consult ---
DATE: 12/31/2017 DAILY PROGRESS NOTE: I saw this patient in hospital bed #2. He states that he feels much better. He has no abdominal pain. He is not nauseated. He is hungry. He has had multiple bowel movements. PHYSICAL EXAMINATION: VITAL SIGNS: Temperature 98.3, pulse is still about 100, blood pressure 145/105. HEART: Regular regular. LUNGS: Decreased. ABDOMEN: Soft, nontender, nondistended. Bowel sounds are noted. EXTREMITIES: No trace of edema. LABORATORY DATA: Repeat laboratory values do still reveal a leukocytosis at 22,000. Lactic acid came down from 2.3 to 1.2. His chemistries are normal. RADIOGRAPHIC DATA: Ultrasound was done which did reveal cholelithiasis without evidence of acute cholecystitis, gallbladder wall thickening, or other. It is possible the patient has the appearance of cirrhosis. IMPRESSION: Abdominal pain, resolved. PLAN: At this point, he is going to start on a clear liquid diet. He will still be monitored for his leukocytosis per IM. Please do not hesitate to call me if I can be of further assistance. I will follow up in the clinic. Thank you for this referral. MEGHANN
== END 2018-01-01 10:55 | disposition home or self-care (01) | DRG 390 ==
LOC: ER 13:21 → MEDSURG 18:28
PROVIDERS: ADMIT Internal Medicine; ATTEND Internal Medicine
DX: K56.600 Partial intestinal obstruction, unspecified as to cause (principal); D72.829 Elevated white blood cell count, unspecified; I10 Essential (primary) hypertension; E78.00 Pure hypercholesterolemia, unspecified; F17.210 Nicotine dependence, cigarettes, uncomplicated
CPT/HCPCS: 74019; 74022; 74177; 76700; 80048; 80053; 81001; 83605; 83690; 85027; 90670; 96374; 96375; 99223; 99238; 99285; J2270; J2405; J3480; J7030